=== PATIENT | female | born 1965 | race Caucasian/White ===

== ENCOUNTER 2017-01-04 07:18 | Day surgery (SDC) | payer BC, MEDICAID ==
--- NOTE | 2016-12-20 19:01 | HP ---
DATE OF ADMISSION: 12/20/2016 HISTORY OF PRESENT ILLNESS: This is the first orthopedic outpatient admission for surgery for this 51-year- old female who has severe pain in the left knee. She has had failed conservative treatment and has undergone evaluation and was found to have degenerative severe tearing of the medial meniscus along with significant patella malalignment and chondromalacia. With the failed treatment, the patient is now being scheduled for outpatient arthroscopic surgery in the form of a left knee evaluation with meniscal surgery and lateral release of patella. The procedure has been outlined to her. She understands the procedure and has consented to it. ALLERGIES: To ibuprofen and NSAIDs. CURRENT MEDICATIONS: Current medications include Advair Diskus, albuterol, hydrocodone, thyroid replacement, lisinopril, and Trintellix. PAST MEDICAL HISTORY: The patient has history of high blood pressure, decreased thyroid function, and sleep apnea problem. The patient has also had acute kidney injury in the past and anxiety problems. PAST SURGICAL HISTORY: Her surgical history is positive. She has had previous , partial hysterectomy, carpal tunnel surgery, gastric bypass. She notes no specific problems with anesthesia. She has a negative bleeding history and negative blood clot history. SOCIAL HISTORY: She is a nonsmoker. Drinking is occasional and very rarely. PHYSICAL EXAMINATION: GENERAL: Today reveals a well-developed and well-nourished 51-year-old female in moderate distress. HEAD, EYES, EARS, NOSE, AND THROAT: Normocephalic. NECK: Supple. CHEST: Clear. COR: Regular rate. ABDOMEN: Soft. GENITOURINARY: Intact EXTREMITIES: Examination of the left knee reveals positive effusion noted about the joint area. Positive patella pain with compression displacement with significant tight lateral retinaculum. She has a positive Milagro's examination for medial meniscus pain. RADIOGRAPHIC STUDIES: The MRI shows positive tearing, degenerative type, and tearing of the medial meniscus with significant patella lateral shift and effusion present and chondromalacia. ASSESSMENT: Tear of medial meniscus, left knee, with chondromalacia patella and patella malalignment. PLAN: Plan is for the patient to undergo arthroscopic surgery on left knee, including medial meniscus surgery and also the patella lateral release and any indicated procedure. The procedure has been outlined to her. She understands the procedure and has consented to it. MMODAL /[id number]
[~2017-01-04 07:18] MED LIST: Lidocaine 1%/Sod Bicarbonate in NS 8.4% 1 ML Syringe IV PRN; Sodium Chloride 0.9% 10 ML Syringe FLUSH PRN
[2017-01-04] MEDS ORDERED: Propofol 200 MG/20 ML SDV ONE (07:23)
[2017-01-04] MEDS ORDERED: Midazolam 1 MG/ML 2 ML SDV ONE ×2 (07:26→08:53)
[2017-01-04] MEDS ORDERED: Lidocaine 1% 4 ML ONE (07:26)
[2017-01-04] MEDS ORDERED: fentaNYL 250 MCG/5 ML SDV ONE (07:27)
--- NOTE | 2017-01-04 07:35 | PCM.PREANE ---
Preanesthetic Assessment - Anesthesia/Transfusion/Family Hx Anesthesia History: Prior Anesthesia Without Reaction Family History of Anesthesia Reaction: No Transfusion History: No Prior Transfusion(s) Intubation History: Unknown (patient claims that she wasn't aware of any difficulty for prior surgerys ) - Review of Systems General: No Symptoms Pulmonary: No Symptoms Cardiovascular: No Symptoms, Dyspnea on Exertion Gastrointestinal: No symptoms Neurological: No Symptoms Other: Reports: Thyroid Problems (hypothyroid ) - Physical Assessment NPO Status Date: 01/03/17 NPO Status Time: 23:00 Pulse: 71 O2 Sat by Pulse Oximetry: 94 Respiratory Rate: 16 Blood Pressure: 134/75 Temperature: 36.6 C Height: 1.57 m Weight: 127.006 kg ASA Class: 3 Mental Status: Alert & Oriented x3 Airway Class: Mallampati = 1 Dentition: Reports: Normal Dentition Thyro-Mental Finger Breadths: 3 Mouth Opening Finger Breadths: 5 ROM/Head Extension: Full - Allergies Allergies/Adverse Reactions: Allergies Allergy/AdvReac Type Severity Reaction Status Date / Time ibuprofen Allergy Cannot Verified 01/03/17 15:57 Remember NSAIDS (Non-Steroidal Allergy Renal Verified 01/03/17 15:57 Anti-Inflamma Insufficiency - Blood Blood Available: No - Anesthesia Plan Pre-Op Medication Ordered: None - Acknowledgements Anesthesia Type Planned: General Anesthesia Pt an Appropriate Candidate for the Planned Anesthesia: Yes Alternatives and Risks of Anesthesia Discussed w Pt/Guardian: Yes Pt/Guardian Understands and Agrees with Anesthesia Plan: Yes PreAnesthesia Questionnaire HEENT History: Reports: Allergic rhinitis, Impaired vision Cardiovascular History: Reports: Hypertension Respiratory History: Reports: Asthma, Sleep apnea Other Respiratory History: machine is broke;seasonal allergies Genitourinary History: Reports: Other (see below) Other Genitourinary History: kidney issues due to increased use of motrin and NSAIDS, acute kidney injury [employer] History: Reports: Musculoskeletal History: Reports: Arthritis Other Musculoskeletal History: Left chrondoromalacia patellaie, L patellar malalignment syndrome, L medial meniscus tear Neurological History: Reports: None Psychiatric History: Reports: Anxiety, Depression Endocrine/Metabolic History: Reports: Hypothyroidism, Vitamin D deficiency Hematologic History: Reports: None Immunologic History: Reports: None Oncologic (Cancer) History: Reports: None Dermatologic History: Reports: None - Infectious Disease History Infectious Disease History: Reports: None - Past Surgical History Head Surgeries/Procedures: Reports: None GI Surgical History: Reports: Bariatric procedure, Cholecystectomy, Other (see below) Other GI Surgeries/Procedures: gastric bypass Female Surgical History: Reports: section, Hysterectomy Musculoskeletal Surgical History: Reports: Other (see below) Other Musculoskeletal Surgeries/Procedures:: carpal tunnel surgery - SUBSTANCE USE Smoking Status *Q: Never Smoker - HOME MEDS Home Medications: Home Meds Albuterol [Ventolin HFA] 1 - 2 puff INH BID PRN 01/03/17 [History] Fluticasone/Salmeterol [Advair 250-50 Diskus] 1 puff INH BID 01/03/17 [History] Hydrocodone/Acetaminophen [Lortab 5-325 mg Tablet] 1 tab PO Q6H PRN 01/03/17 [ History] Levothyroxine [Synthroid] 50 mg PO DAILY 01/03/17 [History] Lisinopril 10 mg PO DAILY 01/03/17 [History] - CURRENT (IN HOUSE) MEDS Current Meds: Current Medications Lactated Ringer's (Ringers, Lactated) 1,000 mls @ 125 mls/hr IV ASDIRECTED NEDRA Lidocaine/Sodium Bicarbonate (Buffered Lidocaine 1% In Ns 8.4%) 0.25 ml IV ONETIME PRN PRN Reason: Prior to IV Start Sodium Chloride (Saline Flush) 10 ml FLUSH ASDIRECTED PRN PRN Reason: Keep Vein Open Discontinued Medications Fentanyl (Sublimaze) Confirm Administered Dose 250 mcg .ROUTE .STK-MED ONE Stop: 01/04/17 07:28 Lidocaine HCl (Xylocaine-Mpf 1%) Confirm Administered Dose 4 mls @ as directed .ROUTE .STK-MED ONE Stop: 01/04/17 07:27 Midazolam HCl (Versed 1 Mg/Ml) Confirm Administered Dose 2 mg .ROUTE .STK-MED ONE Stop: 01/04/17 07:27 Propofol (Diprivan 20 Ml) Confirm Administered Dose 400 mg .ROUTE .STK-MED ONE Stop: 01/04/17 07:24
[2017-01-04] MEDS ORDERED: Sodium Chloride 0.9% 50 ML SDV ONE (07:38)
[2017-01-04] MEDS ORDERED: Bupivacaine 0.5%/EPINEPHrine 1:200,000 50 ML MDV ONE ×2 (07:39)
[2017-01-04] MEDS ORDERED: EPINEPHrine 1:1000 1 MG/ML 30 ML MDV ONE (07:39)
[2017-01-04] MEDS: Lactated Ringers 1,000 ML IV SCH ×2 (07:45→10:52)
[2017-01-04] MEDS ORDERED: diphenhydrAMINE 50 MG/ML SDV IVPUSH PRN (07:51)
[2017-01-04] MEDS ORDERED: Ondansetron 4 MG/2 ML SDV IVPUSH PRN ×2 (07:51→07:57)
[2017-01-04] MEDS ORDERED: fentaNYL 100 MCG/2 ML SDV IVPUSH PRN (07:51)
[2017-01-04] MEDS ORDERED: Acetaminophen/oxyCODONE 325-5 MG Tab PO PRN (07:57)
[2017-01-04] MEDS ORDERED: Cyclobenzaprine 10 MG Tab PO PRN (07:57)
[2017-01-04] MEDS ORDERED: Morphine 15 MG Tab.ER PO SCH (08:00)
[2017-01-04] MEDS ORDERED: ceFAZolin 1 GM Vial ONE (08:05)
[2017-01-04] MEDS ORDERED: Ketamine 500 mg/10 ML MDV ONE (08:38)
[2017-01-04] MEDS ORDERED: Dexamethasone 4 MG/ML 5 ML MDV ONE (08:39)
[2017-01-04] MEDS ORDERED: Ondansetron 4 MG/2 ML SDV ONE (08:41)
[2017-01-04] MEDS ORDERED: ePHEDrine/Normal Saline 25 MG/5 ML Syringe ONE (08:48)
[2017-01-04] MEDS ORDERED: Meperidine PF 50 MG/ML Syringe IVPUSH PRN (09:00)
--- NOTE | 2017-01-04 10:21 | PCM.POSTAN ---
POST ANESTHESIA ASSESSMENT - MENTAL STATUS Mental Status: oriented, other (drowsy ) - VITAL SIGNS Pulse Rate: 88 SaO2: 97 Resp Rate: 9 Blood Pressure: 143/81 Temperature: 36.6 C - RESPIRATORY Respiratory Status: respiratory rate WNL, airway patent, O2 saturation stable - CARDIOVASCULAR CV Status: pulse rate WNL, blood pressure stable - GASTROINTESTINAL GI Status: no symptoms - PAIN Pain Score: 0 - POST OP HYDRATION Hydration Status: adequate & stable
[2017-01-04] MEDS: HYDROmorphone 0.5 MG/0.5 ML Syringe IVPUSH PRN ×2 (10:23→10:51)
[2017-01-04 12:22] VITALS: BP 132/72
--- NOTE | 2017-01-04 15:15 | PCM48HPAN ---
Post Anesthesia Note - EVALUATION WITHIN 48HRS OF ANESTHETIC Vital Signs in Normal Range: Yes Patient Participated in Evaluation: Yes Respiratory Function Stable: Yes Airway Patent: Yes Cardiovascular Function Stable: Yes Hydration Status Stable: Yes Pain Control Satisfactory: Yes Nausea and Vomiting Control Satisfactory: Yes Mental Status Recovered: Yes
--- NOTE | 2017-01-05 07:24 | OR ---
DATE OF OPERATION: 01/04/2017 SURGEON: David Montano MD PREOPERATIVE DIAGNOSIS: 1. Left knee tear, degenerative, complex, medial meniscus. 2. Chondromalacia of patella, moderate. 3. Patella malalignment with contracted lateral retinaculum, left knee. 4. Osteochondrosis, moderate, medial femoral condyle, left knee. 5. Fibrous adhesions with ligamentum mucosum tear, left knee. POSTOPERATIVE DIAGNOSIS: 1. Left knee tear, degenerative, complex, medial meniscus. 2. Chondromalacia of patella, moderate. 3. Patella malalignment with contracted lateral retinaculum, left knee. 4. Osteochondrosis, moderate, medial femoral condyle, left knee. 5. Fibrous adhesions with ligamentum mucosum tear, left knee. ANESTHESIA: General. OPERATION PERFORMED: 1. Left knee arthroscopic partial medial meniscectomy. 2. Arthroscopic debridement, left knee, fibrous adhesions and tear of ligament mucosum. 3. Arthroscopic lateral release of the patella. 4. Arthroscopic osteo-chondroplasty, medial femoral condyle and patella. DESCRIPTION OF PROCEDURE: The patient was taken to the operating room in supine position. She was placed under a general anesthesia. The left leg was then prepped and draped in a standard fashion. After prepping and draping, the operation then proceeded with 2 portal incisions being used, medial and lateral. After the portals were developed, the arthroscope was then inserted on the lateral portal for evaluation of medial joint. Initial evaluation found a very thickened and torn ligamentum mucosum, which was then excised with the shaver. The anterior cruciate ligament was intact, although, there was a small bundle tear with the attachment on the tibia creating a mass-type formation which was shaved smoothed. In the medial compartment, initial anterior portion of the medial meniscus was intact. There was gradual significant degenerative tearing and fragmentation of meniscus all the way back to the posterior horn. This area was shaved and smoothed out with electrocautery. Once that was accomplished, a nerve hook was brought in and then meniscus could be seen. It was then probed from the posterior horn all the way to the anterior horn. No further tears were identified. There was [id number] osteochondrosis of the medial femoral condyle in the central area, extending out over the medial meniscus posteriorly. An osteo-chondroplasty was then carried out. Once the medial compartment was addressed and went through final inspection, the operation proceeded to the lateral compartment, where there was mild tearing of the anterior portion of the lateral meniscus, but otherwise was stable. The meniscus was probed from the posterior horn anteriorly. The condylar surface of the tibia and femur were intact. Operation proceeded with swinging the arthroscope to the suprapatellar area. There was fairly large central chondromalacia of patella that was shaved smooth with chondroplasty. With the patella shifted laterally significantly, well over half of the patella extending over the lateral ridge of the femur, a lateral release was then carried out beginning just proximal to the superior pole of the patella. The electrocautery unit was then used to release the lateral retinaculum down to the lateral portal incisional area. Once the lateral retinaculum was released, the operation proceeded with light cauterization and then inspection looking for the lateral geniculate artery. The artery was identified by some bleeding that was noted, and this was cauterized. Once that was satisfied, the operation proceeded with dropping the tourniquet. The knee went through final inspection, especially, lateral release site for any arterial bleeding. There were small venous bleedings that were cauterized, otherwise, the lateral genicular artery had been cauterized, did not show any bleeding in the area of the lateral release site. There was generalized mild bleeding from the surfaces of the area of surgery, but otherwise the knee was stable. After the tourniquet and the joint were thoroughly inspected, it was then thoroughly irrigated. Then, the operation proceeded with closure of the skin with 3-0 Prolene. The standard Mota dressing that was modified with extra packing placed along lateral release site, was applied to the left lower leg. Once the dressing was in place, the operation proceeded with final stabilization. The patient tolerated this procedure well. She left the operating room in stable condition to her room for recovery. ESTIMATED BLOOD LOSS: MMODAL /[id number]
== END 2017-01-04 12:05 | disposition home or self-care (01) ==
LOC: JD.SDS 07:18
PROVIDERS: ATTEND Specialist
DX: M23.222 Derangement of posterior horn of medial meniscus due to old tear or injury, left knee (principal); M22.42 Chondromalacia patellae, left knee; M93.862 Other specified osteochondropathies, left lower leg; Z88.8 Allergy status to other drugs, medicaments and biological substances; I10 Essential (primary) hypertension; F32.9 Major depressive disorder, single episode, unspecified; Z98.84 Bariatric surgery status; J45.30 Mild persistent asthma, uncomplicated; E03.9 Hypothyroidism, unspecified; G47.33 Obstructive sleep apnea (adult) (pediatric); E55.9 Vitamin D deficiency, unspecified; Z79.899 Other long term (current) drug therapy; Z90.710 Acquired absence of both cervix and uterus; Z98.890 Other specified postprocedural states; Z78.9 Other specified health status
CPT/HCPCS: 29873; 29881; 82945; 84157; 89050; 89060; A9270; J0171; J0690; J1100; J1170; J1200; J2250; J2405; J3010; J7050; J7120; 01400; J2704

== ENCOUNTER 2017-01-11 14:23 | Emergency (ER) | payer SELFPAY ==
[2017-01-11] MEDS ORDERED: HYDROmorphone 1 MG/ML Syringe IVPUSH ONE (15:11)
[2017-01-11] MEDS ORDERED: Sodium Chloride 0.9% 10 ML Syringe FLUSH PRN (15:11)
[2017-01-11] MEDS ORDERED: Ondansetron 4 MG/2 ML SDV IVPUSH ONE (15:11)
--- NOTE | 2017-01-11 15:54 | EDM.PDOC ---
ED HPI Trauma - General Chief Complaint: Lower Extremity Injury/Pain Stated Complaint: [facility] Time Seen by Provider: 01/11/17 14:33 Source: Reports: Patient, RN notes reviewed - History of Present Illness INITIAL COMMENTS - FREE TEXT/NARRATIVE: 51-year-old lady comes in with left knee pain. She had arthroscopic surgery for meniscus tear and also anterior cruciate ligament repair 8 days ago. She states she had been rehabbing relatively well. Then a couple of hours ago stepping into the shower she grabbed the shower curtain Wilbert for stability. That collapsed and she states she twisted her knee and also fell onto her knee. She now has more severe left knee discomfort. She states she also hit the left back area of her head. She has moderate headache. There was no LOC. She did have some nausea but that is gone. She denies neck back chest or other pain or injury from her fall. Her knee discomfort is not bad at rest but she does have fairly severe pain with any type of motion of the leg or knee. She has been taking Percocet for pain. States she is about out. Her last pain pill was about 8 hours ago Allergies/ADRs: Allergies ibuprofen Allergy (Verified 01/11/17 14:28) Cannot Remember NSAIDS (Non-Steroidal Anti-Inflamma Allergy (Verified 01/11/17 14:28) Renal Insufficiency Home Medications: Ambulatory Orders Albuterol [Ventolin HFA] 1 - 2 puff INH BID PRN 01/03/17 [Confirmed 01/11/17] Fluticasone/Salmeterol [Advair 250-50 Diskus] 1 puff INH BID 01/03/17 [ Confirmed 01/11/17] Hydrocodone/Acetaminophen [Lortab 5-325 mg Tablet] 1 tab PO Q6H PRN 01/03/17 [ Confirmed 01/11/17] Levothyroxine [Synthroid] 50 mg PO DAILY 01/03/17 [Confirmed 01/11/17] Lisinopril 10 mg PO DAILY 01/03/17 [Confirmed 01/11/17] Acetaminophen/oxyCODONE [Percocet 325-5 MG] 1 tab PO Q6H #20 tablet 01/11/17 Ondansetron [Zofran ODT] 4 mg PO Q6H PRN #10 tab.dis 01/11/17 Oxycodone. 1 tab PO Q6H PRN 01/11/17 [Confirmed 01/11/17] Past Medical History HEENT History: Reports: Allergic rhinitis, Impaired vision Cardiovascular History: Reports: Hypertension Respiratory History: Reports: Asthma, Sleep apnea Other Respiratory History: machine is broke;seasonal allergies Genitourinary History: Reports: Other (see below) Other Genitourinary History: kidney issues due to increased use of motrin and NSAIDS, acute kidney injury [employer] History: Reports: Musculoskeletal History: Reports: Arthritis Other Musculoskeletal History: Left chrondoromalacia patellaie, L patellar malalignment syndrome, L medial meniscus tear Neurological History: Reports: None Psychiatric History: Reports: Anxiety, Depression Endocrine/Metabolic History: Reports: Hypothyroidism, Vitamin D deficiency Hematologic History: Reports: None Immunologic History: Reports: None Oncologic (Cancer) History: Reports: None Dermatologic History: Reports: None - Infectious Disease History Infectious Disease History: Reports: None - Past Surgical History Head Surgeries/Procedures: Reports: None GI Surgical History: Reports: Bariatric procedure, Cholecystectomy, Other (see below) Other GI Surgeries/Procedures: gastric bypass Female Surgical History: Reports: section, Hysterectomy Musculoskeletal Surgical History: Reports: Other (see below) Other Musculoskeletal Surgeries/Procedures:: carpal tunnel surgery Social & Family History - Tobacco Use Smoking Status *Q: Never Smoker Second Hand Smoke Exposure: No - Caffeine Use Caffeine Use: Reports: None Review of Systems - Review of Systems Review Of Systems: See Below Constitutional: Reports: chills Mouth/Throat: Reports: no symptoms Respiratory: Denies: Shortness of Breath, Pleuritic Chest Pain Cardiovascular: Denies: chest pain GI/Abdominal: Reports: Nausea (Gone). Denies: Abdominal pain, Vomiting Musculoskeletal: Reports: joint pain, joint swelling (Left), other (She does tolerate motion of the left knee but does have discomfort with that). Denies: neck pain, back pain Skin: Reports: bruising (Very few areas very slight bruising left knee) Neurological: Denies: Numbness, Tingling, Weakness Trauma Exam - Physical Exam Exam: See Below General Appearance: Reports: alert Head: Reports: atraumatic Eyes: bilateral eye: PERRL Ears: Reports: normal external exam Nose: Reports: normal inspection Throat/Mouth: Reports: Normal inspection Neck: Reports: full range of motion Respiratory Exam: Reports: no respiratory distress, lungs clear Cardiovascular: Reports: regular rate, rhythm Back: Denies: vertebral tenderness Extremities: Reports: bony-point tenderness (L medial and lateral knee), pain with movement (L knee), other (very mild swelling L knee, no obvious effusion) Neurologic: Reports: no motor/sensory deficits Course - Vital Signs Last Recorded V/S: Last Vital Signs Temp 97.5 F 01/11/17 14:29 Pulse 76 01/11/17 17:44 Resp 16 01/11/17 17:44 BP 145/80 H 01/11/17 17:44 Pulse Ox 95 01/11/17 17:44 - Orders/Labs/Meds Meds: Medications Discontinued Medications Generic Name Dose Route Start Last Admin Trade Name Freq PRN Reason Stop Dose Admin Hydromorphone HCl 1 mg 01/11/17 15:11 01/11/17 15:22 Dilaudid IVPUSH 01/11/17 15:12 1 mg ONETIME ONE Administration Ondansetron HCl 4 mg 01/11/17 15:11 01/11/17 15:20 Zofran IVPUSH 01/11/17 15:12 4 mg ONETIME ONE Administration Sodium Chloride 10 ml 01/11/17 15:11 01/11/17 15:23 Saline Flush FLUSH 10 ml ASDIRECTED PRN Administration Keep Vein Open - Re-Assessments/Exams Free Text/Narrative Re-Assessment/Exam: 01/11/17 16:47 X-rays of the knee look fine, no visible fracture. Discharge instructions as documented Departure - Departure Time of Disposition: 16:47 Disposition: Home, Self-Care 01 Condition: fair Clinical Impression: Fall Qualifiers: Encounter type: initial encounter Qualified Code(s): W19.XXXA - Unspecified fall, initial encounter Knee contusion Qualifiers: Encounter type: initial encounter Laterality: left Qualified Code(s): S80.02XA - Contusion of left knee, initial encounter Concussion Qualifiers: Encounter type: initial encounter Loss of consciousness presence/duration: without LOC Qualified Code(s): S06.0X0A - Concussion without loss of consciousness, initial encounter Prescriptions: Acetaminophen/oxyCODONE [Percocet 325-5 MG] 1 tab PO Q6H #20 tablet Ondansetron [Zofran ODT] 4 mg PO Q6H PRN #10 tab.dis PRN Reason: Nausea/Vomiting Instructions: Knee Pain, Concussion, Adult, [id number] Referrals: Lindsey Pierce PA [Primary Care Provider] - Forms: ED Department Discharge Additional Instructions: Ice packs and elevation as needed for swelling, continue to rehabilitation knee carefully as tolerated, Behzad wrap as needed, Tylenol every 6-8 hours for mild to moderate discomfort or Percocet if needed for more severe pain, see Dr. Pena next week as planned
[2017-01-11 17:50] VITALS: BP 145/80
--- NOTE | 2017-01-12 07:36 | CR ---
Left knee: Four views of the left knee were obtained. Comparison: Previous standing AP knee exam of 12/20/16 is available. Slight osteophytes are noted off the medial knee. Minimal spurring is noted within the intercondylar notch. No joint effusion is identified. No fracture or other abnormality is appreciated. Impression: 1. Mild degenerative change. 2. Nothing acute is identified on four-view left knee exam. Diagnostic code #2
== END 2017-01-11 17:35 | disposition home or self-care (01) ==
LOC: JD.ED 14:23
DX: S80.02XA Contusion of left knee, initial encounter (principal); S06.0X0A Concussion without loss of consciousness, initial encounter; W18.39XA Other fall on same level, initial encounter; Y92.002 Bathroom of unspecified non-institutional (private) residence as the place of occurrence of the external cause; Z98.890 Other specified postprocedural states; I10 Essential (primary) hypertension; J45.909 Unspecified asthma, uncomplicated; G47.30 Sleep apnea, unspecified; M19.90 Unspecified osteoarthritis, unspecified site; F32.9 Major depressive disorder, single episode, unspecified; F41.9 Anxiety disorder, unspecified; E03.9 Hypothyroidism, unspecified; E55.9 Vitamin D deficiency, unspecified; Z79.899 Other long term (current) drug therapy; Z88.6 Allergy status to analgesic agent
CPT/HCPCS: 73564; 96374; 96375; 99285; J1170; J2405; J7050; 99284

== ENCOUNTER 2019-07-14 14:26 | Emergency (ER) | payer BC ==
[2019-07-14 14:46] VITALS: BP 160/86; PULSE 85
--- NOTE | 2019-07-14 15:19 | EDM.PDOC ---
<Mora Tsai - Last Filed: 07/14/19 15:13> ED HPI GENERAL MEDICAL PROBLEM - General Chief Complaint: Lower Extremity Injury/Pain Stated Complaint: RT KNEE PAIN Time Seen by Provider: 07/14/19 15:00 Source of Information: Reports: Patient History Limitations: Reports: No Limitations - History of Present Illness INITIAL COMMENTS - FREE TEXT/NARRATIVE: 54 year old female who presents to the ED with complaints of chronic right knee pain. Pt states that she has had severe medial knee pain for three weeks. Is unable to bear weight on right leg and is unable to bend the right leg due to severe pain. Can no longer go up and down stairs. States that this morning when she was putting on her pants this morning, she felt a tearing in the lateral area of her knee. She was supposed to follow up with Dr. Pena for the knee after he repaired her left knee but [place]. Her regular provider is no longer here in town and she has an appt with JACEK Gonzalez on Sunday but she states that she cannot tolerate the pain any longer. States that she has been taking 4-650mg tylenol tabs four times daily and using aspercreme with lidocaine, but this no longer helps. Pt is allergic to NSAIDs. Pt would like a referral to ortho. Right Knee Pain Score (Numeric/FACES): 8 - Related Data Allergies Allergy/AdvReac Type Severity Reaction Status Date / Time ibuprofen Allergy Cannot Verified 07/14/19 14:46 Remember NSAIDS (Non-Steroidal AdvReac Renal Verified 07/14/19 14:46 Anti-Inflamma Insufficiency Home Meds: Home Meds Albuterol [Ventolin HFA] 1 - 2 puff INH BID PRN 01/03/17 [History] Fluticasone/Salmeterol [Advair 250-50 Diskus] 1 puff INH BID 01/03/17 [History] Levothyroxine [Synthroid] 50 mg PO DAILY 01/03/17 [History] Lisinopril 10 mg PO DAILY 01/03/17 [History] Acetaminophen [Tylenol Arthritis] 2,600 mg PO Q4HR 07/14/19 [History] Tumeric 07/14/19 [History] Past Medical History HEENT History: Reports: Allergic Rhinitis, Impaired Vision Cardiovascular History: Reports: Hypertension Respiratory History: Reports: Asthma, Sleep Apnea Other Respiratory History: machine is broke;seasonal allergies Genitourinary History: Reports: Other (See Below) Other Genitourinary History: kidney issues due to increased use of motrin and NSAIDS, acute kidney injury 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: Musculoskeletal History: Reports: Arthritis Other Musculoskeletal History: Left chrondoromalacia patellaie, L patellar malalignment syndrome, L medial meniscus tear Neurological History: Reports: None Psychiatric History: Reports: Anxiety, Depression Endocrine/Metabolic History: Reports: Hypothyroidism, Vitamin D Deficiency Hematologic History: Reports: None Immunologic History: Reports: None Oncologic (Cancer) History: Reports: None Dermatologic History: Reports: None - Infectious Disease History Infectious Disease History: Reports: None - Past Surgical History Head Surgeries/Procedures: Reports: None GI Surgical History: Reports: Bariatric Procedure, Cholecystectomy, Other (See Below) Female Surgical History: Reports: Section, Hysterectomy Musculoskeletal Surgical History: Reports: Other (See Below) Social & Family History - Family History Family Medical History: Noncontributory - Tobacco Use Smoking Status *Q: Never Smoker - Caffeine Use Caffeine Use: Reports: Soda - Recreational Drug Use Recreational Drug Use: No Review of Systems - Review of Systems Review Of Systems: ROS reveals no pertinent complaints other than HPI. Constitutional: Reports: No Symptoms Eyes: Reports: No Symptoms Ears: Reports: No Symptoms Nose: Reports: No Symptoms Mouth/Throat: Reports: No Symptoms Respiratory: Reports: No Symptoms Cardiovascular: Reports: No Symptoms GI/Abdominal: Reports: No Symptoms Genitourinary: Reports: No Symptoms Musculoskeletal: Reports: Joint Pain (right knee) Skin: Reports: No Symptoms Neurological: Reports: No Symptoms Psychiatric: Reports: No Symptoms ED EXAM, GENERAL - Physical Exam Exam: See Below Exam Limited By: No Limitations General Appearance: Alert, WD/WN, No Apparent Distress Ears: Normal External Exam, Hearing Grossly Normal Nose: Normal Inspection Throat/Mouth: Normal Inspection, Normal Voice, No Airway Compromise Head: Atraumatic, Normocephalic Neck: Normal Inspection, Supple, Non-Tender Respiratory/Chest: No Respiratory Distress, Lungs Clear, Normal Breath Sounds, No Accessory Muscle Use, Chest Non-Tender Cardiovascular: Normal Peripheral Pulses, Regular Rate, Rhythm, No Edema, Systolic Murmur (grade 3 systolic murmur) GI/Abdominal: Normal Bowel Sounds, Soft, Non-Tender, No Organomegaly (Female) Exam: Deferred Rectal (Female) Exam: Deferred Back Exam: Normal Inspection Extremities: Normal Inspection, No Pedal Edema, Limited Range of Motion (right knee, pt is unable to bend this knee, unable to go up and down stairs, unable to bear weight on right leg unless bracing herself) Neurological: Alert, Oriented, Normal Cognition Psychiatric: Normal Affect, Normal Mood Skin Exam: Warm, Dry, Intact, Normal Color, No Rash Lymphatic: No Adenopathy Course - Vital Signs Last Recorded V/S: Last Vital Signs Temp 97.8 F 07/14/19 14:43 Pulse 85 07/14/19 14:43 Resp 19 07/14/19 14:43 BP 160/86 H 07/14/19 14:43 Pulse Ox 92 L 07/14/19 14:43 - Orders/Labs/Meds Labs: Laboratory Tests 07/14/19 Range/Units 15:33 Sodium 142 (136-145) mEq/L Potassium 4.2 (3.5-5.1) mEq/L Chloride 104 (98-107) mEq/L Carbon Dioxide 30 (21-32) mEq/L Anion Gap 12.2 (5-15) BUN 14 (7-18) mg/dL Creatinine 0.8 (0.55-1.02) mg/dL Est Cr Clr Drug Dosing 62.84 mL/min Estimated GFR (MDRD) > 60 (>60) mL/min BUN/Creatinine Ratio 17.5 (14-18) Glucose 89 (74-106) mg/dL Calcium 8.6 (8.5-10.1) mg/dL Total Bilirubin 0.2 (0.2-1.0) mg/dL AST 27 (15-37) U/L ALT 26 (14-59) U/L Alkaline Phosphatase 96 (46-116) U/L Total Protein 7.6 (6.4-8.2) g/dl Albumin 3.5 (3.4-5.0) g/dl Globulin 4.1 gm/dL Albumin/Globulin Ratio 0.9 L (1-2) Acetaminophen 3 L (10-30) ug/mL - Re-Assessments/Exams Free Text/Narrative Re-Assessment/Exam: 07/14/19 15:25 Due to the high level of tylenol that the patient has been taking, I have ordered a CMP and a tylenol level. Departure - Departure Disposition: Home, Self-Care 01 Clinical Impression: Knee pain, right - Discharge Information Instructions: Knee Pain, Adult, [id number] Referrals: PCP,Unknown [Ordering Only Provider] - Forms: ED Department Discharge Additional Instructions: hydrocodone 5/325, 1/2 tablet with either 500 mg or 650 mg tylenol 3 to 4 times daily. rest and elevate leg and knee when it works. See Dr Glass, Orthopedist next available appointment. Call [phone] tomorrow morning for appointment. <Everardo Fuchs - Last Filed: 07/16/19 09:17> Course - Re-Assessments/Exams Free Text/Narrative Re-Assessment/Exam: 07/16/19 09:15 Initial history and exam was done by CINDA Lindo student. I agree with her history and exam as documented. X-rays of the right knee did show some degenerative changes as expected. We'll have her try take one half tablet hydrocodone along with 500 mg Tylenol 2-3 times daily as needed. 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 She does need Orthopedic follow-up. Discharge instructions as documented. Departure - Departure Time of Disposition: 17:35 Condition: Fair
[2019-07-14 16:01] LABS: ACETAMINOPHEN 3 ug/mL (10-30)
--- NOTE | 2019-07-14 16:27 | CR ---
Right knee: Four views of the right knee were obtained. Comparison: Prior standing AP knee exam of 12/20/16. Medial joint space narrowing is seen which is seen better on prior weight-bearing view. Osteophytes are noted off the lateral joint with minimal osteophyte off the medial tibial margin. Osteophytes are noted off the patella. No joint effusion is seen. No acute fracture or dislocation is noted. Impression: 1. Degenerative change as noted above. Nothing acute is appreciated on right knee exam. Diagnostic code #2
== END 2019-07-14 18:03 | disposition home or self-care (01) ==
LOC: JD.ED 14:26
DX: M25.561 Pain in right knee (principal); I10 Essential (primary) hypertension; E03.9 Hypothyroidism, unspecified; J45.909 Unspecified asthma, uncomplicated; Z79.51 Long term (current) use of inhaled steroids; Z79.899 Other long term (current) drug therapy; Z88.6 Allergy status to analgesic agent
CPT/HCPCS: 36415; 73564-26-RT; 73564-RT; 80053; 99283-25; G0480

== ENCOUNTER 2020-07-26 06:05 | Day surgery (SDC) | payer BC ==
--- NOTE | 2020-07-22 14:05 | PCM.PREANE ---
Preanesthetic Assessment - Procedure Proposed Procedure: Right Total Knee Arthroplasty - Anesthesia/Transfusion/Family Hx Anesthesia History: Prior Anesthesia Without Reaction Family History of Anesthesia Reaction: No Transfusion History: No Prior Transfusion(s) Intubation History: Unknown (patient claims that she wasn't aware of any difficulty for prior surgerys ) - Review of Systems General: No Symptoms Pulmonary: No Symptoms (COPD/ Pulmonary HTN/PASTOR-CPAP), Cough Cardiovascular: No Symptoms (HTN), Dyspnea on Exertion Gastrointestinal: No Symptoms (History of gastric bypass surgery/) Neurological: No Symptoms Other: Reports: Thyroid Problems (Hypothyroid), Depression, Anxiety - Physical Assessment NPO Status Date: 07/25/20 NPO Status Time: 23:59 Vital Signs: HR:64 Sat:93% B/P:125/65 Temp:97.7 Resp:16 Height: 1.57 m Weight: 120 kg ASA Class: 3 Mental Status: Alert & Oriented x3 Airway Class: Mallampati = 2 Dentition: Reports: Normal Dentition, Caries Thyro-Mental Finger Breadths: 3 Mouth Opening Finger Breadths: 3 ROM/Head Extension: Full Lungs: Clear to Auscultation, Normal Respiratory Effort, Decreased Breath Sounds Cardiovascular: Regular Rate, Regular Rhythm, No Murmurs - Lab Values: Laboratory Last Values MRSA (PCR) Negative 07/07/20 16:06 All labs reviewed and noted and within acceptable ranges to proceed with scheduled procedure. - Imaging/EKG Impressions: EKG: SB rate = 57 CXR: Mild cardiomegaly and pulmonary venous hypertension/Moderate, unchanged airway disease, asthma vs bronchiolitis Stress Test: no evidence of either infarct or ischemia and EF=73% Echocardiogram: EF= 68%, Mild concentric left ventricular hypertrophy, Grade 1 dysfunction, estimated pulmonary pressure 34 (improved) - Allergies Allergies/Adverse Reactions: Allergies Allergy/AdvReac Type Severity Reaction Status Date / Time ibuprofen Allergy Cannot Verified 07/25/20 09:15 Remember NSAIDS (Non-Steroidal AdvReac Renal Verified 07/25/20 09:15 Anti-Inflamma Insufficiency - Anesthesia Plan Pre-Op Medication Ordered: None, Other (Preoperative pain meds all p.o. (lyrica, tylenol, oxycodone) @0617) - Acknowledgements Anesthesia Type Planned: Spinal (Right Adductor Canal Block under US guidance for post operative pain control requested by Dr. 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: Musculoskeletal History: Reports: Arthritis Other Musculoskeletal History: Left chrondoromalacia patellaie, L patellar malalignment syndrome, L medial meniscus tear Neurological History: Reports: None Psychiatric History: Reports: Anxiety, Depression Endocrine/Metabolic History: Reports: Hypothyroidism, Vitamin D Deficiency Hematologic History: Reports: None Immunologic History: Reports: None Oncologic (Cancer) History: Reports: None Dermatologic History: Reports: None - Infectious Disease History Infectious Disease History: Reports: None - Past Surgical History Head Surgeries/Procedures: Reports: None GI Surgical History: Reports: Bariatric Procedure, Cholecystectomy, Other (See Below) Female Surgical History: Reports: Section, Hysterectomy Musculoskeletal Surgical History: Reports: Other (See Below) - HOME MEDS Home Medications: Home Meds Albuterol [Ventolin HFA] 1 - 2 puff INH BID PRN 01/03/17 [History] Fluticasone Propion/Salmeterol [Advair 250-50 Diskus] 1 puff INH BID 01/03/17 [History] Levothyroxine [Synthroid] 50 mg PO DAILY 01/03/17 [History] Ergocalciferol (Vitamin D2) [Vitamin D2] 50,000 unit PO ASDIRECTED 07/25/20 [History] Pnv No.95/Ferrous Fum/Folic AC [ Caplet] 1 tab PO DAILY 07/25/20 [History] Vortioxetine Hydrobromide [Trintellix] 20 mg PO DAILY 07/25/20 [History] diphenhydrAMINE HCL [Benadryl] 25 mg PO DAILY 07/25/20 [History] lisinopriL [Zestril] 20 mg PO DAILY 07/25/20 [History] - CURRENT (IN HOUSE) MEDS Current Meds: Current Medications Albuterol (Proventil Neb Soln) 2.5 mg NEB ONETIME PRN PRN Reason: bronchodilation Stop: 07/26/20 16:00 Lactated Ringer's (Ringers, Lactated) 1,000 mls @ 125 mls/hr IV ASDIRECTED [facility] Stop: 07/26/20 23:00 Lidocaine/Sodium Bicarbonate (Buffered Lidocaine 1% In Ns 8.4%) 0.25 ml IDERM ONETIME PRN PRN Reason: Prior to IV Start Stop: 07/26/20 18:00 Sodium Chloride (Saline Flush) 10 ml FLUSH ASDIRECTED PRN PRN Reason: Keep Vein Open Stop: 07/26/20 18:00 Discontinued Medications Albuterol (Proventil Neb Soln) 2.5 mg NEB ONETIME PRN PRN Reason: asthma Stop: 07/19/20 23:00 Morphine Sulfate 8 mg/Epinephrine HCl 0.3 mg/Cefuroxime Sodium 750 mg/Sodium Chloride 7.9 ml 0 mg .XX ASDIRECTED PRN PRN Reason: Pain Lactated Ringer's (Ringers, Lactated) 1,000 mls @ 125 mls/hr IV ASDIRECTED [facility] Stop: 07/19/20 23:00 Lidocaine/Sodium Bicarbonate (Buffered Lidocaine 1% In Ns 8.4%) 0.25 ml IDERM ONETIME PRN PRN Reason: Prior to IV Start Stop: 07/19/20 23:00 Sodium Chloride (Saline Flush) 10 ml FLUSH ASDIRECTED PRN PRN Reason: Keep Vein Open Stop: 07/19/20 22:00
--- NOTE | 2020-07-22 15:04 | PCM.SN.2 ---
- Free Text/Narrative Note: Right selective femoral nerve block at the adductor canal for post-procedure pain control under US guidance requested by Dr. Glass. Time Out: 0850 Start: 50 End: 858 Chart reviewed. Consent signed. Questions answered. Appropriate monitors applied. Time out performed. Right mid-shaft femur identified with ultrasound, scanning medially of femur, the femoral artery in the adductor canal visualized, and the femoral nerve located laterally to the artery. The skin was prepped lateral to the ultrasound probe with chlorahexadine times two. The 21ga 4 insulated block needle was inserted under direct ultrasound guidance into the adductor canal. 25mL of 0.5% ropivacaine with 1:200,000 epinephrine was injected circumferentially around the nerve with intermittent negative aspiration noted. Patient tolerated the procedure well. Sterile technique noted along with sterile gloves, mask, and sterile probe cover. See picture on progress note and vital signs on nurses notes. Block completed in PACU. Estelle Hu CRNA
[~2020-07-26 06:05] MED LIST changes: +Acetaminophen 325 MG Tab PO SCH; +Albuterol 0.083% 2.5 MG/3 ML Neb Soln NEB PRN; +EPINEPHrine 1 MG/ML SDV ONE; +Lactated Ringers 1,000 ML IV SCH; +Lidocaine 1%/Sod Bicarbonate in NS 8.4% 1 ML Syringe IDERM PRN; -Lidocaine 1%/Sod Bicarbonate in NS 8.4% 1 ML Syringe IV PRN; +Morphine 8 MG, EPINEPHrine 0.3 MG, Cefuroxime 750 MG, Sodium Chloride 0.9% 7.9 ML PRN; +Pregabalin 25 MG Cap PO SCH; +Ropivacaine 0.5% 5 MG/ML 30 ML SDV ONE; +oxyCODONE ER 10 MG TAB.ER PO SCH
[2020-07-26] MEDS ORDERED: Ondansetron 4 MG/2 ML SDV ONE (06:11)
[2020-07-26] MEDS ORDERED: Lidocaine 1% 4 ML ONE (06:11)
[2020-07-26] MEDS ORDERED: ceFAZolin 1 GM Vial ONE (06:11)
[2020-07-26] MEDS ORDERED: Lactated Ringers 2,000 ML ONE (06:11)
[2020-07-26] MEDS ORDERED: fentaNYL 100 MCG/2 ML SDV ONE (06:12)
[2020-07-26] MEDS ORDERED: Midazolam 1 MG/ML 2 ML SDV ONE (06:12)
[2020-07-26] MEDS ORDERED: Propofol 200 MG/20 ML SDV ONE (06:12)
[2020-07-26] MEDS ORDERED: Ketamine 500 mg/10 ML MDV ONE (06:12)
[2020-07-26] MEDS ORDERED: Albuterol 0.083% 2.5 MG/3 ML Neb Soln NEB PRN (07:37)
[2020-07-26] MEDS ORDERED: ePHEDrine 50 MG/ML SDV IVPUSH PRN (07:37)
[2020-07-26] MEDS ORDERED: Ondansetron 4 MG/2 ML SDV IVPUSH PRN (07:37)
[2020-07-26] MEDS ORDERED: diphenhydrAMINE 50 MG/ML SDV IVPUSH PRN (07:37)
[2020-07-26] MEDS ORDERED: fentaNYL 100 MCG/2 ML SDV IVPUSH PRN (07:37)
[2020-07-26] MEDS ORDERED: HYDROmorphone 0.5 MG/0.5 ML Syringe IVPUSH PRN (07:38)
[2020-07-26] MEDS: Morphine 8 MG, EPINEPHrine 0.3 MG, Cefuroxime 750 MG, Sodium Chloride 0.9% 7.9 ML PRN ×8 (07:49→08:14)
[2020-07-26] MEDS: Bupivacaine 0.25% 10 ML SDV ONE ×2 (07:49→08:13)
[2020-07-26] MEDS: Vancomycin 1 GM SDV ONE ×2 (07:50→08:22)
--- NOTE | 2020-07-26 08:50 | PCM.POSTAN ---
POST ANESTHESIA ASSESSMENT - MENTAL STATUS Mental Status: Alert - VITAL SIGNS Vital Signs: Last Vital Signs Temp 98.2 07/26/20842 Pulse 82 07/26/20842 Resp 14 07/26/20842 BP 138/67 07/26/20842 Pulse Ox 96% 07/26/20842 - RESPIRATORY Respiratory Status: Respiratory Rate WNL, Airway Patent, O2 Saturation Stable, Supplemental Oxygen - CARDIOVASCULAR CV Status: Pulse Rate WNL, Blood Pressure Stable - GASTROINTESTINAL GI Status: No Symptoms - POST OP HYDRATION Hydration Status: Adequate & Stable
[2020-07-26] MEDS ORDERED: Cyclobenzaprine 10 MG Tab PO PRN (09:52)
[2020-07-26] MEDS ORDERED: oxyCODONE 5 MG Tab PO PRN (09:52)
[2020-07-26 10:56] VITALS: BP 105/57; PULSE 63
--- NOTE | 2020-07-26 10:59 | CR ---
PROCEDURE INFORMATION: Exam: XR Right Knee Exam date and time: 07/26/2020 8:52 AM Age: 55 years old Clinical indication: Device placement; Joint replacement hardware; Additional info: Post-op right total knee replacement films TECHNIQUE: Imaging protocol: XR Right knee. Views: 1 or 2 views. COMPARISON: DX Knee Min 4V Rt 07/14/2019 3:56 PM FINDINGS: Bones/joints: There is a right total knee arthroplasty with cemented femoral and tibial components. Alignment is normal with no evidence of hardware complication. No periprosthetic fracture. Bone mineralization is normal. Soft tissues: There is anterior soft tissue swelling and anterior more than posterior postoperative soft tissue air. IMPRESSION: 1. Right total knee arthroplasty without evidence of hardware complication. Thank you for allowing us to participate in the care of your patient. Dictated and Authenticated by: Donna Pompa MD 07/26/2020 10:44 AM Central Time ([place] & [place]) BIPIN
--- NOTE | 2020-07-26 11:24 | PCM48HPAN ---
Post Anesthesia Note - EVALUATION WITHIN 48HRS OF ANESTHETIC Vital Signs in Normal Range: Yes Patient Participated in Evaluation: Yes Respiratory Function Stable: Yes Airway Patent: Yes Cardiovascular Function Stable: Yes Hydration Status Stable: Yes Pain Control Satisfactory: Yes Nausea and Vomiting Control Satisfactory: Yes Mental Status Recovered: Yes Vital Signs: Last Vital Signs Temp 36.8 C 07/26/20 10:14 Pulse 63 07/26/20 10:45 Resp 16 07/26/20 10:45 BP 105/57 L 07/26/20 10:45 Pulse Ox 93 L 07/26/20 10:45
--- NOTE | 2020-08-06 13:04 | PCM.OPNOTE ---
- General Post-Op/Procedure Note Date of Surgery/Procedure: 07/26/20 Operative Procedure(s): right total knee arthroplasty Pre Op Diagnosis: right knee osteoarthrosis Post-Op Diagnosis: Same Anesthesia Technique: Local, MAC, Spinal Primary Surgeon: Dheeraj Glass Anesthesia Provider: Estelle uH Stitch Marker: Jessica Santiago Stitch Marker: Tena Carrera EBJi in mLs: 5 Complications: None Condition: Good Free Text/Narrative:: / 9mm 29x9
--- NOTE | 2020-08-06 13:28 | OR ---
DATE OF OPERATION: 07/26/2020 SURGEON: Dheeraj Glass MD OPERATION PERFORMED: Right total knee arthroplasty. PREOPERATIVE DIAGNOSIS: Right knee osteoarthrosis. POSTOPERATIVE DIAGNOSIS: Right knee osteoarthrosis. ANESTHESIA: Local MAC with spinal. ANESTHESIA PROVIDER: Estelle Hu CRNA ASSISTANTS: 1. Jessica Santiago PA-C. 2. Tena Carrera LPN. ESTIMATED BLOOD LOSS: 5 mL. COMPLICATIONS: None. CONDITION: Stable. IMPLANTS: 1. Gloria size 4 cemented PS femur. 2. [place] size 4 cemented universal tibial base plate. 3. [place] size 4, 9 mm PS X3 polyethylene. 4. [place] size 29 x 9 mm cemented asymmetric patella. DESCRIPTION OF PROCEDURE: The patient was identified in the preop holding area. Proper site was marked and identified by the surgeon. The patient was taken back to the operating theater. After adequate anesthesia, the patient's right lower extremity had a nonsterile tourniquet applied and it was sterilely prepped and draped in the usual sterile fashion. OR time-out was performed. The patient received 2 g IV Ancef. At this time, the right lower extremity was exsanguinated. Tourniquet was insufflated to 300 mmHg. Standard medial parapatellar incision was made. Medial parapatellar arthrotomy was created. Deep fibers of the MCL were raised and anterior fat pad was resected. At this time, attention was turned to the patella. Patella measured 23, it was resected to a 13 for a 29 x 9 mm patella. Drill holes were then drilled and found to be in adequate position. The drill was then drilled in the distal femur and the intramedullary distal femoral cutting guide was then placed. 8 mm was resected off the distal femur and was found to be an adequate resection. Sizing guide was placed. It was found to be a size 4 cemented PS femur that was shown on the implant record at the beginning of this dictation. The drill holes were drilled for the epicondylar axis using Whitesides line and epicondyles as reference. At this time, the 4-in-1 cutting block was placed. An anterior posterior and anterior and posterior chamfer cuts were then completed. Box cut was completed at this time. Attention was turned to the tibia. The posterior medial lateral retractors were placed. The extramedullary tibial guide was placed. It was placed in the old footprint of the ACL. It was aligned with the center of the ankle and 0 degrees of slope, 9 mm was then resected off the unaffected side. There was found to be an acceptable reduction. At this time, posterior osteophytes were removed along with medial and lateral meniscus. A trial implant was placed with a correct sized tibia that was mentioned at the beginning of the dictation. A [place] size 4, 9 mm PS X3 polyethylene insert was then placed. The patient's knee was brought through range of motion. The patella was tracking centrally and was stable to varus and valgus stress. Alignment was found to be roughly at 0 degrees. The tibia was stamped and drilled in proper rotation. The universal tibial base plate was impacted in place. Next, the [place] size 4 cemented PS femur impacted into place and the Gloria size 4, 9 mm PS X3 polyethylene insert was placed. The patient's knee was brought into full extension. The patella was then cemented in place at this time. One liter pulse lavage irrigation was irrigated through the knee along with Irricept Periarticular injection was then completed. The patient's knee was brought through a range of motion. Once the cement had time to set up and it was found to be stable to varus valgus stress, the patella was tracking centrally with full range of motion. At this time, a #2 barbed suture was used for closure of the medial parapatellar arthrotomy. Topical tranexamic acid was placed. 2-0 Vicryl was used subcutaneously, Prineo was used for the skin. The patient tolerated the procedure well and was sent to the PACU in stable condition. MMODAL /[id number] BIPIN
== END 2020-07-26 13:20 | disposition home or self-care (01) ==
LOC: JD.SDS 06:05
PROVIDERS: ATTEND Orthopaedic Surgery
DX: M17.11 Unilateral primary osteoarthritis, right knee (principal); I10 Essential (primary) hypertension; G89.18 Other acute postprocedural pain; G47.33 Obstructive sleep apnea (adult) (pediatric); F32.9 Major depressive disorder, single episode, unspecified; F41.9 Anxiety disorder, unspecified; J45.909 Unspecified asthma, uncomplicated; E03.9 Hypothyroidism, unspecified; Z88.8 Allergy status to other drugs, medicaments and biological substances; Z79.899 Other long term (current) drug therapy; Z98.890 Other specified postprocedural states; Z79.890 Hormone replacement therapy
CPT/HCPCS: 27447; 73560; 87641; 94640; 97116; 97161; 97165; A9270; C1713; C1776; J0171; J0690; J0697; J2001; J2250; J2270; J2370; J2405; J2704; J2795; J3010; J3370; J3490; J7120; 01402; 64450

== ENCOUNTER 2021-05-26 22:19 | Emergency (ER) | payer BC ==
--- NOTE | 2021-05-26 23:09 | EDM.PDOC ---
ED HPI GENERAL MEDICAL PROBLEM - General Chief Complaint: General Stated Complaint: HEADACHE/SORE THROAT/COUGH Time Seen by Provider: 05/26/21 22:46 Source of Information: Reports: Patient History Limitations: Reports: No Limitations - History of Present Illness INITIAL COMMENTS - FREE TEXT/NARRATIVE: Ms. Strong is a very pleasant 56-year-old woman who now presents the ED stating that she chronically has a cough due to asthma, but that it has been worse over the past 3 days, and possibly productive. She has been experiencing a sore throat on and off since 05/24/2021. She developed a headache felt behind her eyes and across the top of her head to the back of her head last night. She states that she developed left ear pain around 2200 tonight, along with a fever up to 102 degrees. She has had nausea since yesterday, but no recent vomiting, constipation, or diarrhea. She denies having dyspnea. No recent urinary symptoms. The patient states that she has been taking diphenhydramine and acetaminophen, which have not helped her symptoms. Here in the ED, the patient is found to be hemodynamically stable, afebrile, saturating 93% on room air. She appears to be relatively comfortable, in no acute distress. Prior to 3 days ago, the patient denies having a recent fever, chills, sore throat, ear pain, nasal or sinus congestion, dyspnea, chest pain, palpitations, nausea, vomiting, constipation, diarrhea, abdominal pain, urinary symptoms, recent weight gain or weight loss, recent bloody bowel movements or black bowel movements, recent joint aches, headaches, or rashes. The patient's PCP is JACEK Rios. She does not recall the name of her [employer] at [facility]. Her Orthopedic Surgeon is Dr. Dheeraj Glass. She has not received a COVID vaccination. Headache Pain Score (Numeric/FACES): 8 - Related Data Allergies Allergy/AdvReac Type Severity Reaction Status Date / Time ibuprofen Allergy Cannot Verified 05/26/21 22:40 Remember NSAIDS (Non-Steroidal AdvReac Renal Verified 05/26/21 22:40 Anti-Inflamma Insufficiency Home Meds: Home Meds Albuterol [Ventolin HFA] 1 - 2 puff INH BID PRN 01/03/17 [History] Fluticasone Propion/Salmeterol [Advair 250-50 Diskus] 1 puff INH BID 01/03/17 [History] Levothyroxine [Synthroid] 50 mg PO DAILY 01/03/17 [History] Ergocalciferol (Vitamin D2) [Vitamin D2] 50,000 unit PO ASDIRECTED 07/25/20 [History] Pnv No.95/Ferrous Fum/Folic AC [ Caplet] 1 tab PO DAILY 07/25/20 [History] Vortioxetine Hydrobromide [Trintellix] 20 mg PO DAILY 07/25/20 [History] diphenhydrAMINE HCL [Benadryl] 25 mg PO DAILY 07/25/20 [History] lisinopriL [Zestril] 20 mg PO DAILY 07/25/20 [History] Acetaminophen [Tylenol Extra Strength] 1 tab PO ASDIRECTED PRN 07/26/20 [History] Cyclobenzaprine [Flexeril] 10 mg PO BID PRN #20 tab 07/26/20 [Rx] Rivaroxaban [Xarelto] 10 mg PO DAILY #30 tab 07/26/20 [Rx] oxyCODONE 5 - 10 mg PO Q4H PRN #60 tab 07/26/20 [Rx] Past Medical History HEENT History: Reports: Allergic Rhinitis, Impaired Vision Cardiovascular History: Reports: Hypertension, Pulmonary Hypertension Respiratory History: Reports: Asthma (PFT-proven), Sleep Apnea (nightly CPAP 9) Musculoskeletal History: Reports: Osteoarthritis Psychiatric History: Reports: Anxiety, Depression Endocrine/Metabolic History: Reports: Hypothyroidism, Obesity/BMI 30+, Vitamin D Deficiency - Past Surgical History HEENT Surgical History: Reports: Oral Surgery (dental extractions) GI Surgical History: Reports: Bariatric Procedure (gastric bypass 2008), Cholecystectomy (2003 or 2004) Female Surgical History: Reports: Section (x 2), Hysterectomy (complete), Tubal Ligation Musculoskeletal Surgical History: Reports: Carpal Tunnel, Knee Replacement (right) Social & Family History - Tobacco Use Tobacco Use Status *Q: Never Tobacco User - Caffeine Use Caffeine Use: Reports: Soda - Alcohol Use Alcohol Use History: Yes Alcohol Use Frequency: Rarely - Recreational Drug Use Recreational Drug Use: No - Living Situation & Occupation Living situation: Reports: , with Family (Daughter + granddaughter) Occupation: Employed ([employer] at [employer]) ED ROS GENERAL - Review of Systems Review Of Systems: Comprehensive ROS is negative, except as noted in HPI. ED EXAM, GENERAL - Physical Exam Exam: See Below Exam Limited By: No Limitations General Appearance: Alert, WD/WN, No Apparent Distress Eye Exam: Bilateral Eye: EOMI, Normal Inspection Ears: Normal External Exam, Normal Canal, Hearing Grossly Normal, Normal TMs Nose: Normal Inspection, Normal Mucosa, No Blood Throat/Mouth: Normal Inspection, Normal Lips, Normal Teeth, Normal Gums, Normal Oropharynx, Normal Voice, No Airway Compromise Head: Atraumatic, Normocephalic Neck: Normal Inspection, Supple, Non-Tender, Full Range of Motion. No: Lymphadenopathy (L), Lymphadenopathy (R) Respiratory/Chest: No Respiratory Distress, Lungs Clear, Normal Breath Sounds, No Accessory Muscle Use. No: Decreased Breath Sounds, Crackles, Rhonchi, Wheezing, Stridor, Prolonged Expiration Cardiovascular: Normal Peripheral Pulses, Regular Rate, Rhythm, No Gallop, No JVD, No Murmur, No Rub Peripheral Pulses: 3+: Radial (L), Radial (R) GI/Abdominal: Normal Bowel Sounds, Soft, Non-Tender, No Organomegaly, No Distention, No Abnormal Bruit, No Mass Back Exam: Normal Inspection, Full Range of Motion, NT Extremities: Normal Inspection, Normal Range of Motion, Normal Capillary Refill Neurological: Alert, Oriented, Normal Cognition, No Motor/Sensory Deficits Psychiatric: Normal Affect Skin Exam: Warm, Dry, Intact, Normal Color, No Rash #1 Interpretation EKG Date: 05/26/21 Time: 23:50 Rhythm: NSR Rate (Beats/Min): 83 [place]: Normal P-Wave: Present QRS: Other (Early transition) ST-T: Normal QT: Normal Comparison: NA - No Prior EKG Course - Vital Signs Last Recorded V/S: Last Vital Signs Temp 37.8 C 05/26/21 22:38 Pulse 94 05/27/21 02:00 Resp 16 05/27/21 02:00 BP 147/83 H 05/27/21 02:00 Pulse Ox 95 05/27/21 02:00 - Orders/Labs/Meds Orders: Active Orders 24 hr Category Date Time Status Chest 1V Frontal [CR] Stat Exams 09/09/21 23:04 Taken BLOOD CULTURE [MREF] Stat Lab 05/26/21 23:30 Received BLOOD CULTURE [MREF] Stat Lab 05/26/21 23:40 Received Blood Culture x2 Reflex Set [OM.PC] Stat Oth 05/26/21 23:05 Ordered Labs: Laboratory Tests 05/26/21 05/26/21 05/26/21 Range/Units 22:50 23:01 23:30 WBC 4.94 (3.98-10.04) K/mm3 RBC 4.51 (3.98-5.22) M/mm3 Hgb 14.1 (11.2-15.7) gm/dl Hct 43.9 (34.1-44.9) % MCV 97.3 H (79.4-94.8) fl MCH 31.3 (25.6-32.2) pg MCHC 32.1 L (32.2-35.5) g/dl RDW Std Deviation 46.1 (36.4-46.3) fL Plt Count 169 L (182-369) K/mm3 MPV 11.2 (9.4-12.3) fl Neutrophils % (Manual) 67 H (40-60) % Band Neutrophils % 2 (0-10) % Lymphocytes % (Manual) 12 L (20-40) % Atypical Lymphs % 0 % Monocytes % (Manual) 18 H (2-10) % Eosinophils % (Manual) 1 (0.7-5.8) % Basophils % (Manual) 0 L (0.1-1.2) Platelet Estimate Adequate Stomatocytes 1+ slight RBC Morph Comment Not Reportable D-Dimer, Quantitative (0.19-0.50) mg/L Sodium (136-145) mEq/L Potassium (3.5-5.1) mEq/L Chloride (98-107) mEq/L Carbon Dioxide (21-32) mEq/L Anion Gap (5-15) BUN (7-18) mg/dL Creatinine (0.55-1.02) mg/dL Est Cr Clr Drug Dosing mL/min Estimated GFR (MDRD) (>60) mL/min BUN/Creatinine Ratio (14-18) Glucose (70-99) mg/dL Lactic Acid (0.4-2.0) mmol/L Calcium (8.5-10.1) mg/dL Magnesium (1.8-2.4) mg/dL Total Bilirubin (0.2-1.0) mg/dL AST (15-37) U/L ALT (14-59) U/L Alkaline Phosphatase (46-116) U/L Troponin I (0.00-0.056) ng/mL C-Reactive Protein (<1.0) mg/dL Total Protein (6.4-8.2) g/dl Albumin (3.4-5.0) g/dl Globulin gm/dL Albumin/Globulin Ratio (1-2) SARS-CoV-2 RNA (DANIEL) Positive H (NEGATIVE) Group A Strep (PCR) Not detected (NOT DETECT) 05/26/21 05/26/21 05/26/21 Range/Units 23:30 23:30 23:30 WBC (3.98-10.04) K/mm3 RBC (3.98-5.22) M/mm3 Hgb (11.2-15.7) gm/dl Hct (34.1-44.9) % MCV (79.4-94.8) fl MCH (25.6-32.2) pg MCHC (32.2-35.5) g/dl RDW Std Deviation (36.4-46.3) fL Plt Count (182-369) K/mm3 MPV (9.4-12.3) fl Neutrophils % (Manual) (40-60) % Band Neutrophils % (0-10) % Lymphocytes % (Manual) (20-40) % Atypical Lymphs % % Monocytes % (Manual) (2-10) % Eosinophils % (Manual) (0.7-5.8) % Basophils % (Manual) (0.1-1.2) Platelet Estimate Stomatocytes RBC Morph Comment D-Dimer, Quantitative 1.71 H (0.19-0.50) mg/L Sodium 139 (136-145) mEq/L Potassium 4.3 (3.5-5.1) mEq/L Chloride 103 (98-107) mEq/L Carbon Dioxide 30 (21-32) mEq/L Anion Gap 10.3 (5-15) BUN 11 (7-18) mg/dL Creatinine 0.8 (0.55-1.02) mg/dL Est Cr Clr Drug Dosing 61.36 mL/min Estimated GFR (MDRD) > 60 (>60) mL/min BUN/Creatinine Ratio 13.8 L (14-18) Glucose 108 H (70-99) mg/dL Lactic Acid 0.7 (0.4-2.0) mmol/L Calcium 8.7 (8.5-10.1) mg/dL Magnesium 1.9 (1.8-2.4) mg/dL Total Bilirubin 0.2 (0.2-1.0) mg/dL AST 32 (15-37) U/L ALT 36 (14-59) U/L Alkaline Phosphatase 89 (46-116) U/L Troponin I < 0.017 (0.00-0.056) ng/mL C-Reactive Protein 2.4 H* (<1.0) mg/dL Total Protein 7.3 (6.4-8.2) g/dl Albumin 3.5 (3.4-5.0) g/dl Globulin 3.8 gm/dL Albumin/Globulin Ratio 0.9 L (1-2) SARS-CoV-2 RNA (DANIEL) (NEGATIVE) Group A Strep (PCR) (NOT DETECT) Meds: Medications Discontinued Medications Generic Name Dose Route Start Last Admin Trade Name Freq PRN Reason Stop Dose Admin Acetaminophen 650 mg 05/27/21 02:13 05/27/21 02:20 Acetaminophen 325 Mg Tab PO 05/27/21 02:14 650 mg NOW ONE Administration Diphenhydramine HCl 50 mg 05/27/21 00:11 Diphenhydramine 50 Mg/Ml Sdv IVPUSH ONETIME PRN hypersensitivity reaction Epinephrine HCl 0.3 mg 05/27/21 00:11 Epinephrine 1 Mg/Ml Sdv IM ONETIME PRN hypersensitivity reaction Famotidine 20 mg 05/27/21 00:11 Famotidine 20 Mg/2 Ml Sdv IVPUSH ONETIME PRN hypersensitivity reaction CASIRIVIMAB/IMDEVIMAB 10 ml/ 110 mls @ 220 mls/hr 05/27/21 00:11 05/27/21 00:46 Sodium Chloride IV 05/27/21 00:40 220 mls/hr ONETIME ONE Administration Methylprednisolone Sodium Succinate 125 mg 05/27/21 00:11 Methylprednisolone Sodium Succinate 125 Mg/2 Ml Sdv IVPUSH ONETIME PRN hypersensitivity reaction Sodium Chloride 30 ml 05/27/21 00:15 05/27/21 01:19 Sodium Chloride 0.9% 10 Ml Syringe FLUSH 30 ml ASDIRECTED [facility] Administration - Re-Assessments/Exams Free Text/Narrative Re-Assessment/Exam: 05/26/21 23:06 The patient's presentation is concerning for COVID-19. A swab for the SARS-CoV-2 virus was ordered at triage. I have added several blood tests, 2 sets of blood cultures, a group A strep by PCR swab, a portable chest x-ray, and an ECG. 05/26/21 23:59 Portable chest radiograph reviewed. The cardiac silhouette is within normal limits. Aortosclerosis incidentally noted. No pulmonary vascular congestion. No pleural effusions seen on this AP view. Possible minimal bibasilar hazy infiltrates versus breast shadows. No pneumothorax. Formal read per the Radiologist pending. The patient's CBC is remarkable for normal cytopenia of 169, and is otherwise negative. Her swab for the SARS-CoV-2 virus is positive. Her swab for group A strep by PCR is negative. The remainder of her work-up is still pending. 05/27/21 00:11 Test results thus far discussed with the patient. Based on her BMI, she is a candidate for an infusion of the monoclonal antibody Regen-Cov. We discussed that at length, including that it is an emergency use authorization medication, intended to decrease the likelihood of patients diagnosed with COVID-19 from developing severe symptoms or , and that it does not treat her current symptoms. I explained that Regen-Cov is still under investigation, that it is not fully FDA approved, and that the potential benefits and risks of the medication are not fully known. The patient was notified that if she receives Regen-Cov, that it may decrease her immune response to a COVID vaccination, should she decide to get it after she recovers from her current illness. I explained that there is a possibility that she could have an allergic reaction either during or after the infusion, as well as brief pain, bleeding, bruising of the skin, soreness, swelling, and possible infection at the infusion site. Other side effects could occur. I discussed that there are other potential treatment options that are currently not FDA approved to treat COVID-19. The patient was notified that the infusion takes about half an hour, after which she would be expected to remain in the ED for another hour to observe for possible side effects. She was offered the "Patient and caregiver ASHLEE Regen-Cov fact sheet" to read and review. All questions were answered. The patient expressed understanding, and would like to proceed with the infusion. 05/27/21 00:47 The patient's CMP is remarkable for slight hyperglycemia of 108, and is otherwise unremarkable. Her magnesium level is within normal limits at 1.9. Her lactic acid level is within normal limits at 0.7. Her CRP is mildly elevated at 2.4. Her troponin is undetectably low. Her D-dimer is elevated at 1.71. 05/27/21 02:14 Notified by Matilde that it has been 1 hour since the patient's Regen-Cov infusion finished, with no adverse reaction. 05/27/21 03:02 I will discharge the patient home with a pulse oximeter. She is to return if her oxygen saturation drops down to 90%, consistently. She is to strictly isolate. I will give her a note to be off work. She should not break isolation until/unless she tests negative. The patient expressed understanding. Departure - Departure Time of Disposition: 03:03 Disposition: Home, Self-Care 01 Condition: Good Clinical Impression: COVID-19 - Discharge Information *PRESCRIPTION DRUG MONITORING PROGRAM REVIEWED*: Not Applicable *COPY OF PRESCRIPTION DRUG MONITORING REPORT IN PATIENT ANDERS: Not Applicable Instructions: COVID-19 Referrals: Jeane West PA-C [Primary Care Provider] - Dheeraj Glass MD [Physician] - Forms: ED Department Discharge, ED Return to Work/School Form Additional Instructions: You were seen in the emergency room for a cough, sore throat, fever, nausea, and headache. Work-up in the ER included numerous blood tests, 2 sets of blood cultures, a strep test, a swab for the SARS-CoV-2 virus, a chest x-ray, and an ECG. Your swab for the SARS-CoV-2 virus returned positive. This means that you have COVID-19. You were treated with an infusion of the monoclonal antibodies Regen-Cov. As discussed, Regen-Cov is not intended to treat your current symptoms, rather, it is intended to reduce your risk of developing severe disease or . You may take [id number] acetaminophen (Tylenol) as needed for discomfort. Stay adequately hydrated. As discussed, it is imperative that you strictly isolate. We recommend that you get retested for the virus on 06/06/2021. Do not break isolation unless you test negative. A note to be off work until 06/06/2021 has been provided to you. You have been provided with a pulse oximeter. We recommend that you check your oxygen saturation several times a day. If your oxygen saturation drops down to 90%, consistently, please return to the ER for reevaluation. Sepsis Event Note (ED) - Focused Exam Vital Signs: Vital Signs Temp Pulse Resp BP Pulse Ox 05/27/21 02:00 94 16 147/83 H 95 05/27/21 01:45 86 14 146/80 H 93 L 05/27/21 01:30 80 16 150/86 H 95 05/27/21 01:15 82 14 140/81 92 L 05/27/21 01:00 82 16 123/84 93 L 05/27/21 00:45 82 16 128/80 94 L 05/26/21 22:38 37.8 C 92 16 139/71 93 L - My Orders Last 24 Hours: My Active Orders 05/26/21 23:04 Chest 1V Frontal [CR] Stat 05/26/21 23:05 Blood Culture x2 Reflex Set [OM.PC] Stat 05/26/21 23:30 BLOOD CULTURE [MREF] Stat 05/26/21 23:40 BLOOD CULTURE [MREF] Stat - Assessment/Plan Last 24 Hours: My Active Orders 05/26/21 23:04 Chest 1V Frontal [CR] Stat 05/26/21 23:05 Blood Culture x2 Reflex Set [OM.PC] Stat 05/26/21 23:30 BLOOD CULTURE [MREF] Stat 05/26/21 23:40 BLOOD CULTURE [MREF] Stat
[2021-05-27] MEDS ORDERED: methylPREDNISolone Sodium Succinate 125 MG/2 ML SDV IVPUSH PRN (00:11)
[2021-05-27] MEDS ORDERED: EPINEPHrine 1 MG/ML SDV IM PRN (00:11)
[2021-05-27] MEDS ORDERED: Famotidine 20 MG/2 ML SDV IVPUSH PRN (00:11)
[2021-05-27] MEDS ORDERED: diphenhydrAMINE 50 MG/ML SDV IVPUSH PRN (00:11)
[2021-05-27] MEDS ORDERED: Sodium Chloride 0.9% 10 ML Syringe FLUSH SCH (00:15)
[2021-05-27] MEDS ORDERED: Acetaminophen 325 MG Tab PO ONE (02:13)
[2021-05-27 02:42] VITALS: BP 147/83; PULSE 94
--- NOTE | 2021-05-27 08:02 | CR ---
Chest: Frontal view of the chest was obtained. Comparison: Prior chest x-ray of 09/30/19. Heart size is at the upper limits of normal. Pulmonary vessels are minimally increased but not as severe as previous exam. Lungs otherwise are clear. Bony structures show nothing acute. Impression: 1. Heart size at the upper limits of normal. 2. Minimal pulmonary vascular congestion is seen but is not as prominent as on prior exam. Diagnostic code #3
== END 2021-05-27 03:10 | disposition home or self-care (01) ==
LOC: JD.ED 22:19
DX: U07.1 COVID-19 (principal); I10 Essential (primary) hypertension; E03.9 Hypothyroidism, unspecified; E66.9 Obesity, unspecified; J45.909 Unspecified asthma, uncomplicated; R79.89 Other specified abnormal findings of blood chemistry; Z88.8 Allergy status to other drugs, medicaments and biological substances; Z79.899 Other long term (current) drug therapy; Z68.42 Body mass index [BMI] 45.0-49.9, adult
CPT/HCPCS: 36415; 71045; 80053; 83605; 83735; 84484; 85007; 85027; 85379; 86140; 87040; 87635; 87651; 93005; 99284; A9270; M0243; Q0243; 93010; U0002

== ENCOUNTER 2021-06-25 18:05 | Emergency (ER) | payer BC ==
[2021-06-25] MEDS ORDERED: Doxycycline 100 MG Cap PO ONE (20:39)
--- NOTE | 2021-06-25 20:45 | EDM.PDOC ---
ED HPI GENERAL MEDICAL PROBLEM - General Chief Complaint: Skin Complaint Stated Complaint: CYST OR BOIL ON BACK Time Seen by Provider: 06/25/21 19:14 - History of Present Illness INITIAL COMMENTS - FREE TEXT/NARRATIVE: Patient reports onset of symptoms about 1 week ago Noted mild pain to left back/flank Since then has had increasing pain and palpable swelling at site Also has burning sensation at site Today had noted fatigue, chills, fever, nausea Has also been experiencing a rash about left side of abdomen for past 2 months Left Back Pain Score (Numeric/FACES): 8 - Related Data Allergies Allergy/AdvReac Type Severity Reaction Status Date / Time ibuprofen Allergy Cannot Verified 06/25/21 18:21 Remember NSAIDS (Non-Steroidal AdvReac Renal Verified 06/25/21 18:21 Anti-Inflamma Insufficiency Home Meds: Home Meds Albuterol [Ventolin HFA] 1 - 2 puff INH BID PRN 01/03/17 [History] Fluticasone Propion/Salmeterol [Advair 250-50 Diskus] 1 puff INH BID 01/03/17 [History] Levothyroxine [Synthroid] 50 mg PO DAILY 01/03/17 [History] Vortioxetine Hydrobromide [Trintellix] 20 mg PO DAILY 07/25/20 [History] diphenhydrAMINE HCL [Benadryl] 25 mg PO DAILY 07/25/20 [History] lisinopriL [Zestril] 20 mg PO DAILY 07/25/20 [History] Acetaminophen [Tylenol Extra Strength] 1 tab PO ASDIRECTED PRN 07/26/20 [Histo ry] Doxycycline Monohydrate 100 mg PO BID #20 capsule 06/25/21 [Rx] Past Medical History HEENT History: Reports: Allergic Rhinitis, Impaired Vision Cardiovascular History: Reports: Hypertension, Pulmonary Hypertension Other Cardiovascular History: abnormal stress test, pulmonary hypertension Respiratory History: Reports: Asthma, Sleep Apnea Other Respiratory History: machine is broke;seasonal allergies Gastrointestinal History: Reports: None Genitourinary History: Reports: Other (See Below) Other Genitourinary History: kidney issues due to increased use of motrin and NSAIDS, acute kidney injury 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: Musculoskeletal History: Reports: Osteoarthritis Other Musculoskeletal History: Left chrondoromalacia patellaie, L patellar malalignment syndrome, L medial meniscus tear Neurological History: Reports: None Psychiatric History: Reports: Anxiety, Depression Endocrine/Metabolic History: Reports: Hypothyroidism, Obesity/BMI 30+, Vitamin D Deficiency Hematologic History: Reports: None Immunologic History: Reports: None Oncologic (Cancer) History: Reports: None Dermatologic History: Reports: None Other Dermatologic History: onchomycosis, itching - Infectious Disease History Infectious Disease History: Reports: Novel Coronavirus - Past Surgical History Head Surgeries/Procedures: Reports: None HEENT Surgical History: Reports: Oral Surgery Respiratory Surgical History: Reports: None GI Surgical History: Reports: Bariatric Procedure, Cholecystectomy Other GI Surgeries/Procedures: gastric bypass Female Surgical History: Reports: Section, Hysterectomy, Tubal Ligation Endocrine Surgical History: Reports: None Neurological Surgical History: Reports: None Musculoskeletal Surgical History: Reports: Carpal Tunnel, Knee Replacement Other Musculoskeletal Surgeries/Procedures:: carpal tunnel surgery Oncologic Surgical History: Reports: None Dermatological Surgical History: Reports: None Social & Family History - Family History Family Medical History: No Pertinent Family History - Tobacco Use Tobacco Use Status *Q: Never Tobacco User Second Hand Smoke Exposure: No - Caffeine Use Caffeine Use: Reports: Coffee, Energy Drinks, Soda - Recreational Drug Use Recreational Drug Use: No - Living Situation & Occupation Living situation: Reports: , with Family (Daughter + granddaughter) 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[employer]) ED ROS GENERAL - Review of Systems Review Of Systems: See Below Respiratory: Reports: Wheezing Free Text/Narrative/Comment: Constitutional - fever; fatigue; chills Eyes - no eye pain; no visual disturbance ENT - no rhinorrhea; no congestion; no epistaxis Cardiovascular - no chest pain Respiratory - no shortness of breath; no cough Gastrointestinal - no abdominal pain; nausea; no vomiting; no diarrhea Genitourinary - no dysuria Musculoskeletal - no neck pain; no back pain; no extremity injury Integumentary - rash; lesion Neurological - no headache; no speech disturbance; no weakness ED EXAM, SKIN/RASH Exam: See Below Text/Narrative:: Constitutional - awake; alert; no acute distress Head - no facial swelling or weakness Eyes - extra ocular motion intact; conjunctiva normal ENT - no nasal deformity; no epistaxis; normal phonation Neck - no swelling Respiratory - normal respiratory effort Cardiovascular - regular rhythm; normal rate Musculoskeletal - grossly normal strength and motion Skin: - warm; dry - 5-6 cm size mound-shaped lesion; located left lower posterior thoracic area; with erythema, induration, and tenderness throughout; no definite fluctuance; erythema radiates to posterolateral flank - longitudinal patch of superficial, scabbed sores on lateral aspect of left flank Neurologic - normal speech; no weakness; gait intact Psychiatric - normal mood and affect; memory and attention normal Course - Vital Signs Text/Narrative:: . Considered etiologies included: rash, shingles, cellulitis, abscess Symptoms and examination were discussed Limited, bedside, US evaluation by screen writer showed no significant fluid collection within posterior left flank lesion She was advised there was no current finding of abscess for drainage Possible future development of abscess was discussed Antibiotic therapy was initiated with oral doxycycline Primary care follow-up was advised Patient was felt to be stable for outpatient follow-up Return precautions were provided Last Recorded V/S: Last Vital Signs Temp 38.4 C H 06/25/21 18:21 Pulse 89 06/25/21 20:51 Resp 16 06/25/21 20:51 BP 114/81 06/25/21 20:51 Pulse Ox 94 L 06/25/21 20:51 - Orders/Labs/Meds Meds: Medications Discontinued Medications Generic Name Dose Route Start Last Admin Trade Name Freq PRN Reason Stop Dose Admin Doxycycline Hyclate 100 mg 06/25/21 20:39 06/25/21 20:51 Doxycycline 100 Mg Cap PO 06/25/21 20:40 100 mg ONETIME ONE Administration Departure - Departure Time of Disposition: 20:45 Disposition: Home, Self-Care 01 Clinical Impression: Cellulitis of mid back region - Discharge Information *PRESCRIPTION DRUG MONITORING PROGRAM REVIEWED*: No *COPY OF PRESCRIPTION DRUG MONITORING REPORT IN PATIENT ANDERS: No Prescriptions: Doxycycline Monohydrate 100 mg PO BID #20 capsule Instructions: Cellulitis, Adult Referrals: Jeane West PA-C [Primary Care Provider] - Forms: ED Department Discharge, ED Return to Work/School Form Additional Instructions: Return if condition worsens May resume general activity and regular diet as tolerated Continue usual medications Take DOXYCYCLINE antibiotic as prescribed, until completed May apply HYDROCORTISONE 1% cream to the rash/itching area on the left side May use topical menthol/camphor preparation like IcyHot, BenGay, Biofreeze to itching skin area as tolerated Follow-up with primary care provider is recommended within 3 to 5 days
[2021-06-25 20:52] VITALS: BP 114/81; PULSE 89
== END 2021-06-25 20:54 | disposition home or self-care (01) ==
LOC: JD.ED 18:05
DX: L03.312 Cellulitis of back [any part except buttock and flank] (principal); I10 Essential (primary) hypertension; E03.9 Hypothyroidism, unspecified; E66.9 Obesity, unspecified; Z88.8 Allergy status to other drugs, medicaments and biological substances; Z79.899 Other long term (current) drug therapy; Z68.42 Body mass index [BMI] 45.0-49.9, adult
CPT/HCPCS: 99283; A9270